=== PATIENT | male | born 1970 | race Hispanic/Latino ===

== ENCOUNTER 2025-03-29 09:59 | Emergency (ER) | payer SELFPAY ==
[2025-03-29] MEDS ORDERED: HYDROcodone/Acetaminophen 5/325 mg Tablet ONE (11:24)
[2025-03-29 12:00] LABS: Bacteria/HPF None Seen HPF (None Seen); CAUTI Indications for Culture Dysuria,urgency,freq; Glucose, Urine (Dipstick) Normal (Negative); Leukocyte Negative Leu/uL (Negative); Protein, Urine (Dipstick) Negative (Neg-Trace); RBC/HPF 0-3 HPF (0-3); Specific Gravity, Urine 1.023 (1.002-1.036); WBC/HPF 0-3 HPF (0-3)
[2025-03-29 12:02] LABS: Urine Culture Reflex No No
== END 2025-03-29 12:50 | disposition home or self-care (01) ==
LOC: ERS 09:59
DX: M54.42 Lumbago with sciatica, left side (principal)
CPT/HCPCS: 81001; 99283